=== PATIENT | female | born 1990 | race Caucasian/White ===

== ENCOUNTER 2021-05-09 11:53 | Inpatient (IN) | payer SELFPAY ==
[~2021-05-09] VITALS: Ht 172.7 cm; Wt 61.0 kg
[2021-05-09 14:59] LABS: BASOPHILS % (AUTO) 0.1 % (0.0-2.0); EOSINOPHILS % (AUTO) 0.1 % (1.0-6.0); HEMATOCRIT 41.4 % (36-46); HEMOGLOBIN 14.2 g/dL (12.0-16.0); LYMPHOCYTES # (AUTO) 1.3 K/uL (1.0-4.8); LYMPHOCYTES % (AUTO) 14.1 % (22.0-44.0); MEAN CORPUSCULAR HEMOGLOBIN 33.4 pg (26.0-34.0); MEAN CORPUSCULAR HGB CONC 34.2 G/dL (31.0-37.0); MEAN CORPUSCULAR VOLUME 98 fL (80-100); MONOCYTES # (AUTO) 0.5 K/uL (0.1-1.0); MONOCYTES % (AUTO) 5.4 % (2.0-9.0); NEUTROPHILS # (AUTO) 7.2 K/uL (1.8-7.7); NEUTROPHILS % (AUTO) 80.3 % (40.0-70.0); PLATELET COUNT (AUTO) 312 K/uL (150-450); RED BLOOD CELL COUNT(AUTO) 4.25 MIL/uL (4.00-5.20); RED CELL DISTRIBUTION WIDTH 12.6 % (11.5-14.5)
[2021-05-09 15:08] LABS: ANION GAP 18 mmol/L (8-16); CALCIUM, TOTAL 9.3 mg/dL (8.8-10.5); CARBON DIOXIDE 18 mmol/L (22-29); CHLORIDE 101 mmol/L (98-107); CREATININE 0.91 mg/dL (0.60-1.30); GLOMERULAR FILTR. RATE CALC > 60 mL/min (>60); GLUCOSE,RANDOM 75 mg/dL (70-110); POTASSIUM 3.8 mmol/L (3.5-5.1); SODIUM SERUM 137 mmol/L (136-145); UREA NITROGEN, BLOOD 14 mg/dL (7-18)
[2021-05-09 15:22] LABS: ALANINE AMINOTRANSFERASE 29 U/L (12-78); ALBUMIN 4.6 g/dL (3.4-5.0); ALKALINE PHOSPHATASE 88 U/L (46-116); ASPARTATE AMINOTRANSFERASE 33 U/L (15-37); BILIRUBIN,TOTAL 1.1 mg/dL (0.1-1.0); CHOL/HDL RATIO 2.6 (3.9-5.7); CHOLESTEROL 192 mg/dL (131-200); FREE T4 (FREE THYROXINE) 1.44 ng/dL (0.76-1.46); HDL CHOLESTEROL 73 mg/dL (40-60); LDL CHOL (CALC.) 100 mg/dL (0-130); THYROID STIMULATING HORMONE 0.32 uIU/mL (0.36-3.74); TOTAL PROTEIN, SERUM 8.8 g/dL (6.4-8.2); TRIGLYCERIDES 95 mg/dL (15-150)
[2021-05-09] MEDS ORDERED: ACETAMINOPHEN 325 MG TABLET PO PRN (16:00)
[2021-05-09 17:49] LABS: COVID AG,FIA SOURCE NASOPHARYNGEAL
[2021-05-09] MEDS ORDERED: ZOLPIDEM TARTRATE 10 MG TABLET PO PRN (20:30)
[2021-05-09] MEDS ORDERED: LORazepam 2 MG TABLET PO PRN (20:30)
[2021-05-09] MEDS ORDERED: HALOPERIDOL 5 MG TABLET PO PRN (20:30)
[2021-05-09 21:03] VITALS: BP 125/85
[2021-05-09] MEDS ORDERED: INFLUENZA VIRUS VACCINE QVS 2021-22 (6MO+)/PF 60 MCG/0.5 ML SYRINGE IM. ONE (21:45)
[2021-05-10 05:58] VITALS: BP 120/70
[2021-05-10 08:31] VITALS: BP 113/69
[2021-05-10] MEDS ORDERED: IBUPROFEN 400 MG TABLET PO PRN (16:00)
[2021-05-10] MEDS ORDERED: PETROLATUM,WHITE 28 GM JELLY TP PRN (16:00)
[2021-05-10] MEDS ORDERED: ACETAMINOPHEN 325 MG TABLET PO PRN (16:00)
[2021-05-10] MEDS ORDERED: DOCUSATE SODIUM 100 MG CAPSULE PO PRN (16:00)
[2021-05-10] MEDS ORDERED: ONDANSETRON HCL 4 MG TABLET PO PRN (16:00)
[2021-05-10] MEDS ORDERED: MAGNESIUM HYDROXIDE SUSPENSION 30 ML UDCUP PO PRN (16:00)
[2021-05-10] MEDS ORDERED: MAG HYDROX/AL HYDROX/SIMETH ES 30 ML SUSPENSION UDCUP PO PRN (16:00)
[2021-05-10] MEDS ORDERED: LOPERAMIDE HCL 2 MG CAPSULE PO PRN (16:00)
[2021-05-10] MEDS ORDERED: NICOTINE 14 MG/24 HOUR PATCH TD PRN (16:00)
[2021-05-10] MEDS ORDERED: CloNIDine HCL 0.1 MG TABLET PO PRN (16:00)
[2021-05-10] MEDS ORDERED: GuaiFENesin/D-METHORPHAN [SUGAR-FREE] 200-20MG/10 ML SYRUP UDCUP PO PRN (16:00)
[2021-05-10] MEDS ORDERED: ALBUTEROL SULFATE HFA 90 MCG/PUFF 8 GM INHALER IH PRN (16:00)
[2021-05-10 16:15] VITALS: BP 130/72
[2021-05-11 05:57] VITALS: BP 132/64
[2021-05-11 08:33] VITALS: BP 109/71
[2021-05-11 16:11] VITALS: BP 98/71
[2021-05-12 00:27] VITALS: BP 103/69
[2021-05-12 08:34] VITALS: BP 128/80
[2021-05-12] MEDS: RisperiDONE CONC 2 MG/2 ML SOLUTION ORAL.SYG PO SCH ×2 (15:05→20:42)
[2021-05-12 16:27] VITALS: BP 121/77
[2021-05-13 01:10] VITALS: BP 137/75
[2021-05-13 08:06] VITALS: BP 109/86
[2021-05-13] MEDS: RisperiDONE CONC 2 MG/2 ML SOLUTION ORAL.SYG PO SCH ×2 (09:00→20:38)
[2021-05-13 16:21] VITALS: BP 93/68
[2021-05-14 01:19] VITALS: BP 114/68
[2021-05-14 07:38] LABS: COVID AG,FIA SOURCE NASOPHARYNGEAL
[2021-05-14] MEDS: RisperiDONE CONC 2 MG/2 ML SOLUTION ORAL.SYG PO SCH ×2 (09:00→20:33)
[2021-05-14 16:04] VITALS: BP 118/75
[2021-05-15 00:57] VITALS: BP 120/86
[2021-05-15 08:33] VITALS: BP 126/77
[2021-05-15] MEDS: RisperiDONE CONC 2 MG/2 ML SOLUTION ORAL.SYG PO SCH ×2 (09:00→21:00)
[2021-05-15 16:12] VITALS: BP 100/69
[2021-05-16 00:07] VITALS: BP 107/61
[2021-05-16] MEDS ORDERED: LORazepam 2 MG/ML VIAL IM ONE (01:00)
[2021-05-16] MEDS ORDERED: DiphenhydrAMINE HCL 50 MG/ML VIAL IM ONE (01:00)
[2021-05-16] MEDS ORDERED: HALOPERIDOL LACTATE 5 MG/ML VIAL IM ONE (01:00)
[2021-05-16 08:32] VITALS: BP 109/71
[2021-05-16] MEDS: RisperiDONE CONC 2 MG/2 ML SOLUTION ORAL.SYG PO SCH ×2 (09:00→20:50)
[2021-05-16 16:16] VITALS: BP 105/66
[2021-05-17 00:31] VITALS: BP 116/72
[2021-05-17 08:10] VITALS: BP 107/66
[2021-05-17] MEDS: RisperiDONE CONC 2 MG/2 ML SOLUTION ORAL.SYG PO SCH ×2 (09:00→20:38)
[2021-05-17] MEDS: MULTIVITAMINS WITH MINERALS, THERAPEUTIC TABLET PO SCH (12:45)
[2021-05-17 16:12] VITALS: BP 108/61
[2021-05-18 00:59] VITALS: BP 104/67
[2021-05-18 08:07] VITALS: BP 114/67
[2021-05-18] MEDS: RisperiDONE CONC 2 MG/2 ML SOLUTION ORAL.SYG PO SCH ×2 (08:42→21:00)
[2021-05-18] MEDS: MULTIVITAMINS WITH MINERALS, THERAPEUTIC TABLET PO SCH (09:00)
[2021-05-18 16:05] VITALS: BP 119/70
[2021-05-19 00:04] VITALS: BP 107/65
[2021-05-19 08:19] VITALS: BP 118/66
[2021-05-19] MEDS: RisperiDONE CONC 2 MG/2 ML SOLUTION ORAL.SYG PO SCH ×2 (09:00→20:31)
[2021-05-19] MEDS: MULTIVITAMINS WITH MINERALS, THERAPEUTIC TABLET PO SCH (09:00)
[2021-05-19 16:11] VITALS: BP 100/61
[2021-05-20 00:13] VITALS: BP 98/67
[2021-05-20 08:05] VITALS: BP 112/60
[2021-05-20 08:07] VITALS: BP 112/60
[2021-05-20] MEDS: RisperiDONE CONC 2 MG/2 ML SOLUTION ORAL.SYG PO SCH ×2 (08:43→20:10)
[2021-05-20] MEDS: MULTIVITAMINS WITH MINERALS, THERAPEUTIC TABLET PO SCH (08:44)
[2021-05-20 16:01] VITALS: BP 111/64
[2021-05-21 00:11] VITALS: BP 109/68
[2021-05-21 07:30] LABS: COVID AG,FIA SOURCE NASOPHARYNGEAL
[2021-05-21 08:07] VITALS: BP 107/62
[2021-05-21] MEDS: RisperiDONE CONC 2 MG/2 ML SOLUTION ORAL.SYG PO SCH ×2 (08:08→20:13)
[2021-05-21] MEDS: MULTIVITAMINS WITH MINERALS, THERAPEUTIC TABLET PO SCH (08:08)
[2021-05-21 16:53] VITALS: BP 103/60
[2021-05-22 04:06] VITALS: BP 123/76
[2021-05-22 08:01] VITALS: BP 115/66
[2021-05-22] MEDS: MULTIVITAMINS WITH MINERALS, THERAPEUTIC TABLET PO SCH (08:09)
[2021-05-22] MEDS: RisperiDONE CONC 2 MG/2 ML SOLUTION ORAL.SYG PO SCH ×2 (08:09→20:44)
[2021-05-22 16:02] VITALS: BP 104/61
[2021-05-23 00:25] VITALS: BP 101/60
[2021-05-23 08:02] VITALS: BP 109/66
[2021-05-23] MEDS: RisperiDONE CONC 2 MG/2 ML SOLUTION ORAL.SYG PO SCH ×2 (08:34→20:55)
[2021-05-23] MEDS: MULTIVITAMINS WITH MINERALS, THERAPEUTIC TABLET PO SCH (08:37)
[2021-05-23 16:14] VITALS: BP 116/68
[2021-05-24 00:16] VITALS: BP 112/62
[2021-05-24 08:10] VITALS: BP 117/56
[2021-05-24] MEDS: RisperiDONE CONC 2 MG/2 ML SOLUTION ORAL.SYG PO SCH ×2 (09:00→20:12)
[2021-05-24] MEDS: MULTIVITAMINS WITH MINERALS, THERAPEUTIC TABLET PO SCH (09:00)
[2021-05-24 16:36] VITALS: BP 104/68
[2021-05-25 05:34] VITALS: BP 106/71
[2021-05-25 08:23] VITALS: BP 101/75
[2021-05-25] MEDS: RisperiDONE CONC 2 MG/2 ML SOLUTION ORAL.SYG PO SCH ×2 (09:00→20:14)
[2021-05-25] MEDS: MULTIVITAMINS WITH MINERALS, THERAPEUTIC TABLET PO SCH (09:00)
[2021-05-26] MEDS: MULTIVITAMINS WITH MINERALS, THERAPEUTIC TABLET PO SCH (09:00)
[2021-05-26] MEDS: RisperiDONE CONC 2 MG/2 ML SOLUTION ORAL.SYG PO SCH (09:00)
[2021-05-26] MEDS ORDERED: RISP2TAB76 PO ×2 (13:09)
== END 2021-05-26 14:00 | disposition home or self-care (01) | DRG 885 ==
LOC: EMS 11:56 → B2S 17:24
PROVIDERS: ADMIT Psychiatry & Neurology Child & Adolescent Psychiatry; ATTEND Psychiatry & Neurology Child & Adolescent Psychiatry
DX: F31.5 Bipolar disorder, current episode depressed, severe, with psychotic features (principal); R45.851 Suicidal ideations; Z20.822 Contact with and (suspected) exposure to COVID-19; F41.9 Anxiety disorder, unspecified; G44.209 Tension-type headache, unspecified, not intractable; G47.00 Insomnia, unspecified; Z59.00 Homelessness unspecified; Z79.899 Other long term (current) drug therapy; Z91.14 Patient's other noncompliance with medication regimen
CPT/HCPCS: 80053; 80061; 84439; 84443; 84703; 85025; 99285; G0480; J1200; J1630; J2060